=== PATIENT | female | born 1950 | race Caucasian/White ===

== ENCOUNTER → 2017-09-24 | Outpatient (CLI) | payer MEDICARE ==
[~2017-09-24] MED LIST: ASPI81CH6 PO; METF500T PO; METO25TA3 PO; OXYC1TAB63 PO; SIMV20TA PO
[2017-09-24 12:22] LABS: AUTOMATED NEUTROPHIL # 3.9 TH/MM3 (1.8-7.7); BASOPHIL % 0.7 % (0.0-2.0); EOSINOPHIL # 0.4 TH/MM3 (0-0.4); EOSINOPHIL % 5.4 % (0.0-4.0); HEMOGLOBIN 13.1 GM/DL (11.6-15.3); LYMPH % 27.9 % (9.0-44.0); LYMPHOCYTE # 1.9 TH/MM3 (1.0-4.8); MEAN CELL VOLUME 92.1 FL (80.0-100.0); MEAN CORPUSCULAR HEMOGLOBIN 31.8 PG (27.0-34.0); MEAN CORPUSCULAR HGB CONC 34.6 % (32.0-36.0); MEAN PLATELET VOLUME 7.7 FL (7.0-11.0); MONO % 8.9 % (0.0-8.0); MONOCYTE # 0.6 TH/MM3 (0-0.9); NEUT % 57.1 % (16.0-70.0); PLATELET COUNT 257 TH/MM3 (150-450); RED BLOOD COUNT 4.13 MIL/MM3 (4.00-5.30); RED CELL DISTRIBUTION WIDTH 13.4 % (11.6-17.2); WHITE BLOOD COUNT 6.8 TH/MM3 (4.0-11.0)
[2017-09-24 12:26] LABS: PROTHROMBIN TIME - PATIENT 9.9 SEC (9.8-11.6)
[2017-09-24 12:46] LABS: ALBUMIN 3.7 GM/DL (3.4-5.0); AST (GOT) 22 U/L (15-37); BLOOD UREA NITROGEN 19 MG/DL (7-18); CALCIUM 8.7 MG/DL (8.5-10.1); CHLORIDE 104 MEQ/L (98-107); CREATININE 0.92 MG/DL (0.50-1.00); GLOMERULAR FILTRATION RATE 61 ML/MIN (>89); GLUCOSE,FASTING 92 MG/DL (74-99); SODIUM (NA) 139 MEQ/L (136-145)
[2017-09-24 12:48] LABS: ALT (GPT) 34 U/L (10-53)
[2017-09-24 12:50] LABS: ALKALINE PHOSPHATASE 94 U/L (45-117); TOTAL BILIRUBIN ADULT 0.5 MG/DL (0.2-1.0); TOTAL PROTEIN 7.4 GM/DL (6.4-8.2)
--- NOTE | 2017-09-24 13:22 | RADRPT ---
EXAM DATE/TIME: 09/24/2017 12:34 [place] COMPARISON: No previous studies available for comparison. INDICATIONS : Evaluate for pneumonia, penumothorax or communicable disease. Pre op for hysterectomy. MEDICAL HISTORY : None. SURGICAL HISTORY : None. ENCOUNTER: Initial ACUITY: 1 day PAIN SCORE: 0/10 LOCATION: chest FINDINGS: PA and lateral views of the chest demonstrate the lungs to be symmetrically aerated without evidence of mass, infiltrate or effusion. The cardiomediastinal contours are unremarkable. Osseous structure s are intact. CONCLUSION: No acute disease. Freedom Omer MD on September 24, 2017 at 13:20 Board Certified Radiologist. This report was verified electronically.
--- NOTE | 2017-10-02 22:40 | MP ---
cc: SRUTHI WRIGHT M.D., RAY, MD MOLPUS, KELLY L. MD DATE OF SURGERY 10/01/17 PREOPERATIVE DIAGNOSIS Pelvic mass. POSTOPERATIVE DIAGNOSIS Bilateral ovarian cyst adenomas PROCEDURE Robotic-assisted laparoscopic hysterectomy bilateral salpingo-oophorectomy. SURGEON Kendall Aragon MD BLOG WRITER [place] first aid trainer ANESTHESIA General endotracheal anesthesia ESTIMATED BLOOD LOSS 100 mL IV FLUIDS 1100 mL URINE OUTPUT 200 mL HISTORY A 67-year-old female found on exam and imaging to have approximately 13-15 cm predominately cystic pelvic mass thought to be of ovarian origin. There was at least one prominent internal septation, but the content were cystic. The capsule was smooth. The imaging showed no overt evidence of changes to suggest metastatic disease. Tumor markers were normal. She was counseled regarding these findings. She is in favor of definitive surgery, in favor of minimally invasive technique. She was counseled in our office. She is seen again in the preop holding area today where the findings are again reviewed. Plan of care is discussed. Questions were answered. She expressed good understanding and would like to move forward with surgery. FINDINGS Uterine cavity sounded to 10 cm. The uterus and cervix grossly appear normal. The peritoneal cavity, the right ovary is slightly prominent at approximately 4 cm with a cystic mass but has some solid components, smooth-walled. Left ovary has a smooth-walled approximately 14 cm mass that is wedged down into the posterior cul-de-sac and extends up into the pelvis. The capsule was intact. There is at least one single prominent septation. The liver diaphragm edges are smooth. The omentum grossly appears normal. Large and small bowel and adjacent mesentery appeared normal. There are no peritoneal implants. PATHOLOGY Preliminary pathology shows both ovaries to favor benign cystadenoma. No evidence of malignancy. The uterus was opened and no abnormality in the endometrium detected. PROCEDURE IN DETAIL She was taken to the operating room placed in dorsal lithotomy position after general endotracheal anesthesia was administered. Time-out was undertaken. She was identified by sight recognition and hospital ID bracelet and the proposed procedure was reviewed and confirmed. She was carefully positioned in padded Arnie stirrups, arms were padded and secured to the sides. She was further secured to the operating table with egg crate padding tape in across chest over the shoulder fashion. All sites noted be properly aligned with no malalignments or pressure points. Prepped, draped sterile fashion, placed in high lithotomy position, cervix grasped, uterine cavity sounded, cervix dilated. Standard V-Care manipulator inserted and secured usual fashion. Ahmadi catheter placed in the bladder. She was returned to low lithotomy position. Change of sterile gloves was undertaken. We completed draping in anticipation of laparoscopy, confirmed that an orogastric tube is in the stomach on suction. With manual elevation of the abdominal wall and direct laparoscopic visualization, 5 mm cannula introduced into the left upper quadrant, an atraumatic entry was confirmed. Carbon dioxide gas was insufflated. Under laparoscopic visualization, 12 mm cannula placed in midline above the umbilicus, 8 mm cannula placed in the right upper quadrant, left lateral quadrant and the original 5-mm exchanged for an 8-mm cannula. She was placed in Trendelenburg position. Peritoneal washings were obtained for cytology. The anatomy was explored with findings as described above. Three Ray-Pelon sponges were placed around the root of the small bowel mesentery after the bowel had been folded back toward the abdomen. Robotic system brought into the operative field, attached in usual fashion. Monopolar scissors, fenestrated bipolar forceps and Prograsp manipulators placed in arms #1, 2 and 3 respectively and I took my place at the surgeon's console. Right round ligament isolated, cauterized. transected. Anterior and posterior leafs of the broad ligament were opened. Right ureter was identified. The right infundibulopelvic ligament was isolated. The intervening peritoneum was opened. The infundibulopelvic ligament was isolated to the level of the pelvic brim where it was cauterized and transected. Posterior peritoneum opened along the right side of the uterus and cervix. Due to distortion from the large left ovarian mass, further dissection on the right side was deferred. Retroperitoneal dissection was carried out lateral and parallel to the gonadal vessels on the left. Adhesions were taken down to mobilize the colon which was partially adherent to the left pelvic sidewall and retroperitoneal dissection was carried out, allowed identification of the left ureter. The infundibulopelvic ligament was isolated. The intervening peritoneum was opened. Adhesions were taken down with sharp dissection. The infundibulopelvic ligament was isolated to the level of the pelvic brim where it was cauterized thoroughly and transected. Now the posterior peritoneum was dissected off the uterus and cervix bilaterally and the left utero-ovarian ligament was isolated, cauterized and transected thereby detaching the large left ovarian mass from the uterus. Now anterior dissection was carried out bilaterally as the vesicouterine peritoneum was dissected off the lower uterine segment. The bladder flap was retracted well below the level of the cervix and the uterine vessels were skeletonized. Uterine vessels were cauterized and transected on the right side and then the cardinal, paracervical and uterosacral ligaments were isolated, cauterized and transected in a stepwise fashion freeing attachments along the right side of the uterus and cervix. Attention was directed toward the left side where similarly the left uterine vessels were isolated, cauterized and transected as were the cardinal, paracervical and uterosacral ligaments thereby freeing the attachments along the left side of the uterus and cervix. Colpotomy was performed following the cap of the [email or web address] manipulator the cervix from the vagina and the specimen was withdrawn transvaginally which included uterus, cervix and the attached right tube and ovary and a pneumo occluder balloon was placed in the vagina to maintain pneumoperitoneum. A 15 cm EndoCatch bag was introduced transvaginally and the left tube and ovary with the large cystic ovarian mass was placed in the EndoCatch bag and brought down to the pelvis and the edge of the bag was brought out through the introitus. To help facilitate delivery of the specimen, I left the surgeon's console to the bedside on countertraction, identified the wall of the cystic mass all of which was contained in the bag. A small hold was made in the wall of the cyst and it was suctioned transvaginally such that there was no intraperitoneal spill of fluid. This large mass collapsed down and the smaller mass was able to be delivered through the vagina contained within the EndoCatch bag. A pneumo occluder balloon was replaced into the vagina. Specimens were sent for histopathologic analysis with benign findings as eventually reported as described above. I returned to the surgeon's console. Instruments one and three exchanged for needle drivers as a 0 Vicryl suture was introduced. Vaginal cuff was closed starting at the left corner, full-thickness closure, including the left uterosacral ligament, posterior peritoneum tied via instrument tie. Closure was held on countertraction as a running full-thickness continuous closure was carried across the vaginal apex to the contralateral corner where it was similarly fixed, secured, tied and the needle was cut and removed. Pelvis was thoroughly irrigated. Small bleeders rendered hemostatic with bipolar cautery. The bladder wall was intact on inspection and there was a good margin between the bladder edge and the vaginal cuff suture line. Good hemostasis. Good peristalsis of ureters bilaterally. The pathology came back benign. It was felt that all reasonable surgical objectives had been completed. Therefore, the robotic instruments were removed. The robotic system was disengaged. I reentered the bedside under sterile condition. Each of the three Ray-Pelon sponges that had been placed were removed, each were inspected and noted to be removed in their entirety. There were no remaining foreign objects in the peritoneal cavity. Sites were hemostatic. Preliminary counts were correct. The 12 mm fascial defect was closed with 0 Vicryl sutures using a needle pass fascial closure apparatus. They were tied securely which rendered the fascia completely airtight and hemostatic. The remaining cannulas were withdrawn. Carbon dioxide gas was removed. 3-0 Vicryl subcutaneous and 3-0 Vicryl subcuticular were used to close these incisions and then dressed with Steri-Strips. She is placed in dorsal lithotomy position. Pelvic exam confirmed the vaginal cuff was well-supported and hemostatic. There was some diffuse oozing from the vaginal mucosa due to irritation from manipulation and specimen delivery and near the posterior vaginal apex and also along the near introitus with a small area of irritation along the vaginal sidewall. There were no lacerations. A 1 gram sample of hemostatic Luma powder was used in the vagina to help facilitate and continue hemostasis and then a couple of interrupted 3-0 Vicryl [id number] sutures were placed right at the introitus near the perineum where a small separation was rendered hemostatic and reapproximated with suture closure. There were no remaining foreign objects in the vagina other than the intentionally placed hemostatic agent. Final counts were correct. She was returned to dorsal supine position and was pending reversal of anesthesia when I left the operating room to precede her to the Post Anesthesia Care Unit. MD RISA Starr/ /11:26 AM /9:55 PM
== END ==
LOC: CPRE 11:39
PROVIDERS: ATTEND Obstetrics & Gynecology Gynecologic Oncology
DX: Z01.810 Encounter for preprocedural cardiovascular examination (principal); Z01.811 Encounter for preprocedural respiratory examination; Z01.812 Encounter for preprocedural laboratory examination; Z01.818 Encounter for other preprocedural examination; R19.09 Other intra-abdominal and pelvic swelling, mass and lump
CPT/HCPCS: 36415; 71046; 80053; 85025; 85610; 85730

== ENCOUNTER 2017-10-01 05:10 | Observation (INO) | payer MEDICARE ==
[~2017-10-01] VITALS: Ht 170.2 cm; Wt 99.1 kg
[~2017-10-01 05:10] MED LIST changes: -OXYC1TAB63 PO
[2017-10-01] MEDS ORDERED: ceFAZolin 2 GM PREMIX 50 ML IV SCH (05:30)
[2017-10-01] MEDS ORDERED: HEPARIN SODIUM - SQ 10,000 UNITS/ML VIAL SQ PRN (05:30)
[2017-10-01] MEDS ORDERED: SODIUM CHLORIDE FLUSH PRN IV FLUSH (05:30)
[2017-10-01] MEDS ORDERED: POVIDONE IODINE 5% (ANTISEPSIS KIT) 4 APPLICATIONS EACH NARE PRN (05:45)
[2017-10-01] MEDS ORDERED: METOPROLOL TARTRATE 25 MG TAB PO PRN (05:45)
[2017-10-01] MEDS ORDERED: SODIUM CHLORID 0.9% 500 ML IV PRN (05:45)
[2017-10-01] MEDS ORDERED: CHLORHEXIDINE GLUCONATE 2 % 1 PACK (2 CLOTHS) TOPICAL PRN (05:45)
[2017-10-01] MEDS ORDERED: LACTATED RINGER'S 1000 ML IV PRN (05:45)
[2017-10-01] MEDS ORDERED: SUGAMMADEX SODIUM 200 MG/2 ML VIAL IV PUSH ONE (06:46)
[2017-10-01] MEDS ORDERED: ACETAMINOPHEN 1000 MG/100 ML 100 ML IV ONE (06:46)
[2017-10-01] MEDS ORDERED: ARTIFICIAL TEARS OPTH OINT 3.5 APPLIC/3.5 GM TUBO ONE (06:46)
[2017-10-01] MEDS ORDERED: LIDOCAINE 0.5%/EPINEPHrine 1:200,000 SOLN 50 ML VIAL ONE (06:58)
[2017-10-01] MEDS ORDERED: FAMOTIDINE 20 MG/2 ML VIAL ONE (07:02)
[2017-10-01] MEDS ORDERED: APREPITANT 40 MG CAP ONE (07:04)
[2017-10-01] MEDS ORDERED: ONDANSETRON HCL 4 MG/2 ML VIAL IVP PRN (11:00)
[2017-10-01] MEDS: SODIUM CHLORIDE FLUSH BID IV FLUSH SCH ×2 (11:00→21:07)
[2017-10-01] MEDS ORDERED: oxyCODONE/ACETAMINOPHEN 5 MG/325 MG TAB PO PRN ×2 (11:00)
[2017-10-01] MEDS ORDERED: LORazepam 0.5 MG TAB PO PRN (11:00)
[2017-10-01] MEDS ORDERED: SODIUM CHLORIDE 0.9% FLUSH 10 ML FLUSH IV FLUSH PRN (11:00)
[2017-10-01] MEDS ORDERED: diphenhydrAMINE HCL 25 MG CAP PO PRN (11:00)
[2017-10-01] MEDS ORDERED: MIDAZOLAM HCL 2 MG/2 ML VIAL ONE (11:13)
[2017-10-01] MEDS: INSULIN NovoLIN REGULAR SUPPLEMENTAL SCALE SQ SCH ×3 (11:29→21:20)
[2017-10-01] MEDS: D5-1/2 NS + KCL 20 MEQ INJ 1,000 ML IV SCH (11:30)
[2017-10-01] MEDS ORDERED: DEXTROSE 50% IN WATER 50 ML VIAL(D50) IV PUSH PRN (11:30)
[2017-10-01] MEDS ORDERED: GLUCAGON 1 MG/ML VIAL OTHER PRN (11:30)
[2017-10-01] MEDS ORDERED: PROPOFOL 200 MG/20 ML AMP IV ONE (12:00)
[2017-10-01] MEDS ORDERED: PHENYLEPH/NS 1000 MCG/10 ML SYR IV ONE (12:00)
[2017-10-01] MEDS ORDERED: NORMOSOL R INJ 1,000 ML IV ONE (12:00)
[2017-10-01] MEDS ORDERED: GLYCOPYRROLATE 1 MG/5 ML SYRINGE IV PUSH ONE (12:00)
[2017-10-01] MEDS ORDERED: DEXAMETHASONE SOD PHOS 4 MG/ML VIAL IV ONE (12:00)
[2017-10-01] MEDS ORDERED: ONDANSETRON HCL 4 MG/2 ML VIAL IV ONE (12:00)
[2017-10-01] MEDS ORDERED: VECURONIUM BROMIDE 20 MG VIAL IV ONE (12:00)
[2017-10-01] MEDS ORDERED: LIDOCAINE HCL 1% PF 5 ML SYRINGE OTHER ONE (12:00)
[2017-10-01] MEDS ORDERED: ePHEDrine/NS 25 MG/5 ML SYRINGE IV ONE (12:00)
[2017-10-01] MEDS ORDERED: KETOROLAC TROMETHAMINE 30 MG/ML (IVP) VIAL IV PUSH ONE (12:00)
[2017-10-01] MEDS ORDERED: NEOSTIGMINE 5 MG/5 ML SYRINGE IV PUSH ONE (12:00)
[2017-10-01] MEDS ORDERED: STERILE WATER FOR INJECTION 20 ML VIAL IV ONE (12:00)
[2017-10-01] MEDS ORDERED: ROCURONIUM INJ 50 MG/5 ML SYRINGE IV PUSH ONE (12:00)
[2017-10-01] MEDS ORDERED: *ONDANSETRON 4 MG VIAL PERIprocedural Use ONLY ONE (12:15)
[2017-10-01] MEDS ORDERED: *morphine SULFATE 4 MG/ML PERIprocedure ONLY ONE (12:15)
[2017-10-01] MEDS ORDERED: DO NOT ADM ANY ANTICOAGULANT DRUGS PRN (14:30)
--- NOTE | 2017-10-01 15:28 | PD.ONC.PN ---
Subjective Subjective Remarks post op pt doing well no complaints, pain controlled denies nausea or vomiting awaiting room Objective Data Date Time Temp Pulse Resp B/P (MAP) Pulse Ox O2 Delivery O2 Flow Rate FiO2 10/01/17 13:00 80 12 122/60 (80) 100 Nasal Cannula 2 10/01/17 12:00 74 12 115/59 (77) 99 Nasal Cannula 2 10/01/17 11:45 69 12 117/62 (80) 99 Nasal Cannula 2 10/01/17 11:30 73 12 111/60 (77) 98 Nasal Cannula 2 10/01/17 11:15 77 20 104/59 (74) 98 Nasal Cannula 2 10/01/17 10:58 97.7 77 16 105/52 (69) 100 Nasal Cannula 2 10/01/17 05:59 98.6 83 20 139/80 (99) 97 10/01/17 10/01/17 10/01/17 07:00 15:00 23:00 Intake Total 1100 ml Output Total 300 ml Balance 800 ml Administered Medications Medications (Trade) Dose Ordered Sig/Hui Route PRN Reason Start Time Stop Time Status Last Admin Dose Admin Heparin Sodium (Porcine) (Heparin Inj) 5,000 units STAFF VETERINARIAN PRN SQ GIVE PRE-OP STAFF VETERINARIAN TO OR 10/01/17 05:30 10/01/17 22:00 10/01/17 06:00 Cefazolin Sodium/ Dextrose 50 ml @ 100 mls/hr STAFF VETERINARIAN IV 10/01/17 05:30 10/04/17 05:29 10/01/17 07:00 Sodium Chloride (NS Flush) 2 ml BID IV FLUSH 10/01/17 09:00 10/01/17 11:00 Lactated Ringer's 1,000 ml @ 30 mls/hr Q24H PRN IV SEE LABEL COMMENTS 10/01/17 05:45 10/04/17 05:44 10/01/17 06:00 Povidone Iodine (Betadine 5% Antisepsis Kit) 1 applic STAFF VETERINARIAN PRN EACH NARE SEE LABEL COMMENTS 10/01/17 05:45 10/04/17 05:44 10/01/17 06:00 Chlorhexidine Gluconate (Chlorhexidine 2% Cloth) 3 pack STAFF VETERINARIAN PRN TOPICAL SEE LABEL COMMENTS 10/01/17 05:45 10/04/17 05:44 10/01/17 05:30 Potassium Chloride/Dextrose/ Sod Cl 1,000 ml @ 75 mls/hr [id number] IV 10/01/17 11:30 10/01/17 11:30 Objective Remarks GENERAL: Well-nourished, well-developed patient. SKIN: Warm and dry. HEAD: Normocephalic. EYES: No scleral icterus. No injection or drainage. CARDIOVASCULAR: Regular rate and rhythm without murmurs. RESPIRATORY: Breath sounds equal bilaterally. No accessory muscle use. GASTROINTESTINAL: SS are c/d/i EXTREMITIES: teds and scds MUSCULOSKELETAL: Adequate muscle tone. NEUROLOGICAL: No obvious focal deficit. Awake, alert, and oriented x3. PSYCHIATRIC: Appropriate mood and affect; insight and judgment normal. Assessment/Plan Problem List: (1) Pelvic mass in female ICD Codes: R19.00 - Intra-abdominal and pelvic swelling, mass and lump, unspecified site Status: Resolved (2) Postoperative state ICD Codes: Z98.890 - Other specified postprocedural states Plan: s/p RA Lap hyst with BSO and resection of pelvic mass post op orders in chart ADAT IS to bedside once on floor d/c romero in AM OOB to chair Toradol and Percocet for pain anticipate discharge in next 24 hours Baldomero Naik Oct 01, 2017 15:28
[2017-10-01] MEDS: KETOROLAC TROMETHAMINE 30 MG/ML (IVP) VIAL IVP SCH ×2 (15:50→21:10)
[2017-10-01 20:47] VITALS: PULSE 54
[2017-10-01] MEDS ORDERED: SODIUM CHLORIDE 0.9% FLUSH 10 ML FLUSH IV FLUSH SCH (21:00)
[2017-10-01 21:20] VITALS: BP 127/71; PULSE 103; RESP 18; TEMP 98.7; O2SAT 96
[2017-10-01 23:11] VITALS: BP 109/59; PULSE 105; RESP 20; TEMP 98.1; O2SAT 96
[2017-10-02 00:06] VITALS: PULSE 98
[2017-10-02] MEDS: D5-1/2 NS + KCL 20 MEQ INJ 1,000 ML IV SCH (00:22)
[2017-10-02 04:08] VITALS: PULSE 92
[2017-10-02] MEDS: KETOROLAC TROMETHAMINE 30 MG/ML (IVP) VIAL IVP SCH ×2 (05:27→09:35)
[2017-10-02 05:35] VITALS: BP 132/75; PULSE 92; RESP 16; TEMP 98; O2SAT 96
[2017-10-02 06:29] LABS: AUTOMATED NEUTROPHIL # 12.7 TH/MM3 (1.8-7.7); BASOPHIL % 0.1 % (0.0-2.0); HEMATOCRIT 35.6 % (35.0-46.0); HEMOGLOBIN 12.1 GM/DL (11.6-15.3); LYMPH % 5.8 % (9.0-44.0); LYMPHOCYTE # 0.8 TH/MM3 (1.0-4.8); MEAN CORPUSCULAR HEMOGLOBIN 31.6 PG (27.0-34.0); MEAN PLATELET VOLUME 7.6 FL (7.0-11.0); MONO % 4.9 % (0.0-8.0); MONOCYTE # 0.7 TH/MM3 (0-0.9); NEUT % 89.2 % (16.0-70.0); PLATELET COUNT 276 TH/MM3 (150-450); RED BLOOD COUNT 3.83 MIL/MM3 (4.00-5.30); RED CELL DISTRIBUTION WIDTH 13.6 % (11.6-17.2); WHITE BLOOD COUNT 14.2 TH/MM3 (4.0-11.0)
[2017-10-02 07:00] LABS: BICARBONATE 25.1 MEQ/L (21.0-32.0); CALCIUM 8.2 MG/DL (8.5-10.1); CREATININE 0.88 MG/DL (0.50-1.00)
[2017-10-02] MEDS ORDERED: OXYC1TAB63 PO (07:24)
[2017-10-02] MEDS: INSULIN NovoLIN REGULAR SUPPLEMENTAL SCALE SQ SCH ×2 (08:00→12:00)
[2017-10-02] MEDS: SODIUM CHLORIDE FLUSH BID IV FLUSH SCH (09:00)
[2017-10-02] MEDS: PRAVASTATIN SOD 20 MG TAB PO SCH ×2 (09:00→09:34)
[2017-10-02] MEDS ORDERED: METOPROLOL TARTRATE 25 MG TAB PO SCH (09:00)
[2017-10-02 09:26] VITALS: BP 116/61; PULSE 90; RESP 20; TEMP 98; O2SAT 98
--- NOTE | 2017-10-06 19:33 | MD ---
cc: SRUTHI WRIGHT M.D.,MISTY Medina MD ADMISSION DATE: 10/01/2017 DISCHARGE DATE: 10/02/2017 PROCEDURE 10/01/2017 robotic-assisted laparoscopic hysterectomy bilateral salpingo-oophorectomy (with resection of approximately 14 cm left ovarian mass and 4 cm right ovarian mass). Preliminary pathology - bilateral benign ovarian cystadenomas HOSPITAL COURSE She did well in early postop period, hemodynamically stable, tolerating oral intake. Ahmadi catheter removed pending voiding. Ins and outs 2157/725. Labs H&H of 12.1/35.6. Electrolytes potassium 3.7, BUN and creatinine 12 and 0.88. PHYSICAL EXAMINATION VITAL SIGNS: Afebrile, pulse 92-105, respirations 18-20, blood pressure 109-132 over 59-75, O2 saturations greater than or equal to 96%. GENERAL: Alert and oriented x3 in no acute distress. LUNGS: Clear. CARDIOVASCULAR: Regular rate and rhythm. ABDOMEN: Soft. Incision is clean and dry. 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 ASSESSMENT Postop day #1 doing well in early postoperative period. Preliminary pathology, findings, steps taken at surgery were reviewed. Activities and restrictions discussed. Questions were answered. She expressed good understanding. PLAN Anticipate discharge to home. She is to resume prior medications. She will have a prescription for Percocet for pain. Our office number is again made available. She is to contact our office as scheduled followup in approximately 2 weeks and to contact our office should she have any questions or problems between now and the time of scheduled followup. MD RISA Starr/ /7:23 AM /7:24 PM
== END 2017-10-02 13:46 | disposition home or self-care (01) ==
LOC: HSDC 05:10 → EDSTATUS 07:30 → HSDI 10:50 → HCIN 20:33
PROVIDERS: ADMIT Obstetrics & Gynecology Gynecologic Oncology; ATTEND Obstetrics & Gynecology Gynecologic Oncology
DX: D27.1 Benign neoplasm of left ovary (principal); D27.0 Benign neoplasm of right ovary; N80.0 Endometriosis of uterus; N84.0 Polyp of corpus uteri; N87.9 Dysplasia of cervix uteri, unspecified; N72 Inflammatory disease of cervix uteri; I10 Essential (primary) hypertension; E11.9 Type 2 diabetes mellitus without complications; Z79.84 Long term (current) use of oral hypoglycemic drugs; Z79.82 Long term (current) use of aspirin
CPT/HCPCS: 80048; 82948; 85025; 86850; 86900; 86901; 88112; 88307; 88329; 88331; 94664; 96361; 96372; 96374; 96376; G0378; J0131; J0690; J1100; J1644; J1885; J2250; J2270; J2370; J2405; J2710; J3010; J3480; J7120; 88305; J8501